=== PATIENT | female | born 1965 | race Caucasian/White ===

== ENCOUNTER 2016-12-02 18:54 | Emergency (ER) | payer BC, OTHER ==
[~2016-12-02 18:54] MED LIST: ATOR-54 PO; DULO60CA44 PO; ETOD300C20 PO; GABA1CAP5 PO
[2016-12-02 19:03] VITALS: TEMP 36.5; O2SAT 98; Ht 142.2 cm
[2016-12-02] MEDS ORDERED: HYDROCODONE/ACETAMOPHEN 5/325MG TAB PO ONE (20:00)
[2016-12-02] MEDS ORDERED: NRN100 PO (20:14)
[2016-12-02] MEDS ORDERED: BUPR100T5 PO (20:14)
[2016-12-02] MEDS ORDERED: SERT100T PO (20:14)
[2016-12-02] MEDS ORDERED: CYAN500T PO (20:21)
[2016-12-02] MEDS ORDERED: OMEG10007 PO (20:21)
[2016-12-02] MEDS ORDERED: CHOL100027 PO (20:21)
[2016-12-02] MEDS ORDERED: HYDR-5688 PO ×2 (20:21→21:41)
[2016-12-02] MEDS ORDERED: MELA1TAB9 PO (20:21)
--- NOTE | 2016-12-02 20:53 | DIAGNOSTIC IMAGING REPORT ---
PELVIS 1 OR 2 VIEW ROUTINE CLINICAL HISTORY: Posterior upper left leg pain status post fall. COMPARISON STUDY: No previous studies for comparison. FINDINGS: A lumbosacral fusion and multilevel discectomy is partially imaged. Sacroiliac joints and symphysis pubis are intact. No acute fracture is identified within the pelvis or the hips. Pelvic calcifications likely reflect phleboliths. IMPRESSION: No acute fracture within the pelvis or hips. Electronically signed by: Alex Gonzalez M.D. 12/02/2016 8:51 PM Dictated Date/Time: 12/02/2016 8:50 PM
--- NOTE | 2016-12-02 20:54 | DIAGNOSTIC IMAGING REPORT ---
LEFT FEMUR 2 VIEWS ROUTINE CLINICAL HISTORY: Hamstring pain s/p fall COMPARISON: None FINDINGS: Fusion hardware within the sacrum is partially imaged on this examination. Alignment of the left hip is anatomic. No acute fracture of the left femur is identified. Alignment of the knee is anatomic. IMPRESSION: No acute fracture of the left femur. Electronically signed by: Alex Gonzalez M.D. 12/02/2016 8:52 PM Dictated Date/Time: 12/02/2016 8:51 PM
--- NOTE | 2016-12-02 21:16 | DIAGNOSTIC IMAGING REPORT ---
LEFT LOWER EXTREMITY VENOUS DOPPLER CLINICAL HISTORY: Posterior left leg pain status post fall. COMPARISON STUDY: Bilateral lower extremity venous Doppler July 18, 2014. TECHNIQUE: Sonography of the deep venous system of the left lower extremity was performed. Compression and augmentation were evaluated. FINDINGS: The left common femoral, superficial femoral and popliteal veins were compressible. Augmentation was normal. Flow was shown within the deep calf vessels. Within the deep tissues of the posterior left thigh, there is a 4.1 x 3.4 x 2 cm complex hypoechoic abnormality. IMPRESSION: 1. No evidence of deep venous thrombus within the left lower extremity. 2. 4.1 x 3.4 x 2 cm hypoechoic abnormality within the deep soft tissues of the posterior left thigh. Given the clinical history, this likely reflects a hematoma which could be seen in the setting of a hamstrings injury. A mass is considered less likely although a follow-up ultrasound in one month is recommended. Electronically signed by: Alex Gonzalez M.D. 12/02/2016 9:15 PM Dictated Date/Time: 12/02/2016 9:12 PM
[2016-12-02 21:17] VITALS: BP 112/70; PULSE 77
--- NOTE | 2016-12-02 21:42 | EMERGENCY ROOM VISIT NOTE ---
ED Visit Note First contact with patient: 19:27 Chief Complaint: LEFT Leg Extreme Pain from Fall History of Present Illness: Patient is a 51-year-old female who presents to the emergency department today for evaluation of ongoing pain to the posterior aspect of the LEFT leg. She reports that on Thursday evening she was at a restaurant when she slipped in the bathroom that was overflowing with water causing her to perform a split. She reports that she had immediate pain in the posterior aspect of the LEFT leg. She was seen at [facility] and had x -rays performed. She is uncertain as to what it x-rayed. She was discharged home and diagnosed with a hip contusion. She reports that she's had no pain to her head, but does complain of continued pain to the posterior aspect of the LEFT leg. She denies any numbness or tingling into the distal extremity. She does report a history of lumbar fusion performed by Dr. Kimble within the past few years. She denies any pain in her low back. The patient denies any loss of control bowel/bladder saddle anesthesia. He reports increasing pain with ambulation and range of motion. She rates her current discomfort as an 8/10. She is tried wikx-ybb-djeeavm medications without relief of symptoms. The patient denies any associated back pain, groin pain, knee pain, ankle pain, or foot pain. Medications: Reviewed and discussed with the patient. Allergies: Oxycodone PMH: As above. SHx: Patient is a 51-year-old female who lives with family. ROS: All pertinent positive and negative review of systems are appropriately documented in the History of Present Illness. Physical Exam: VITAL SIGNS - Vital signs and nursing notes were reviewed. GENERAL - 51-year-old female appearing her stated age and in noticeable discomfort throughout the exam. MUSCULOSKELETAL - moderate tenderness to palpation to the posterior aspect of the LEFT thigh. Decreased range of motion second to patient discomfort. No point tenderness over the bony processes of the extremity. Full flexion at the hip joint with limited extension secondary to discomfort. No ecchymosis or erythema noted to the affected area. No palpable cords. NEUROLOGIC/VASCULAR - Neurovascularly intact distally with +3/5 dorsalis pedis pulses palpated bilaterally. Normal sensation to light and sharp touch appreciated distally. Patellar reflexes equal bilaterally. IMAGING: LEFT FEMUR 2 VIEWS ROUTINE CLINICAL HISTORY: Hamstring pain s/p fall COMPARISON: None FINDINGS: Fusion hardware within the sacrum is partially imaged on this examination. Alignment of the left hip is anatomic. No acute fracture of the left femur is identified. Alignment of the knee is anatomic. IMPRESSION: No acute fracture of the left femur. PELVIS 1 OR 2 VIEW ROUTINE CLINICAL HISTORY: Posterior upper left leg pain status post fall. COMPARISON STUDY: No previous studies for comparison. FINDINGS: A lumbosacral fusion and multilevel discectomy is partially imaged. Sacroiliac joints and symphysis pubis are intact. No acute fracture is identified within the pelvis or the hips. Pelvic calcifications likely reflect phleboliths. IMPRESSION: No acute fracture within the pelvis or hips. LEFT LOWER EXTREMITY VENOUS DOPPLER CLINICAL HISTORY: Posterior left leg pain status post fall. COMPARISON STUDY: Bilateral lower extremity venous Doppler July 18, 2014. TECHNIQUE: Sonography of the deep venous system of the left lower extremity was performed. Compression and augmentation were evaluated. FINDINGS: The left common femoral, superficial femoral and popliteal veins were compressible. Augmentation was normal. Flow was shown within the deep calf vessels. Within the deep tissues of the posterior left thigh, there is a 4.1 x 3.4 x 2 cm complex hypoechoic abnormality. IMPRESSION: 1. No evidence of deep venous thrombus within the left lower extremity. 2. 4.1 x 3.4 x 2 cm hypoechoic abnormality within the deep soft tissues of the posterior left thigh. Given the clinical history, this likely reflects a hematoma which could be seen in the setting of a hamstrings injury. A mass is considered less likely although a follow-up ultrasound in one month is recommended. ED Course: Patient was seen and evaluated by myself. Patient was provided one [place] for breakthrough pain. X-ray of the pelvis and femur were obtained. Ultrasound of the LEFT lower extremity was obtained. Imaging results as above. Imaging results reviewed with the patient who acknowledges understanding. The patient was encouraged to continue to ice the area for comfort. She was provided [place] for breakthrough pain. She is a walker that she will use at home for ambulation. She will follow-up with business applications specialist from today's visit. She will return for any change or worsening symptoms. Patient discharged home in good condition. In the evaluation and treatment of this patient, the following differential diagnoses were considered: Hip Fracture, Hip Dislocation, Greater Trochanteric Bursitis, Musculoskeletal Pain, Lumbar Radiculopathy. Impression: LEFT Hamstring Tear Discharge Instructions: You have been treated in the Emergency Department for a Tear of your LEFT Hamstring. You have received pain medicine in the emergency department which impairs your ability to operate a vehicle. It is illegal for you to drive after receiving these medicines. You have been prescribed [place] to be used for pain control. This is a narcotic medication. You cannot drive or consume alcohol while on this medicine. This medicine should only be used for pain that cannot be controlled with over-the- counter pain medicines. For pain control, you can use the following eqxx-hfr-zelwsbn medicines (if >12 yo): - Regular strength (325mg/tab) Tylenol (acetaminophen) 2 tabs every 4-6 hours as needed. Do not exceed 12 tablets in a 24 hour period. Avoid taking more than 4 grams (4000 mg) of Tylenol per day. This includes any other sources of acetaminophen you may take on a regular basis. - Regular strength (200 mg/tab) Advil (ibuprofen) 1-2 tabs every 4-6 hours as needed. Do not exceed a dose of 3200 mg per day. If this is a recent injury (<24 hrs), ice can be applied to the area of pain for the first 3 days to help decrease pain and inflammation. Ice massages can be performed by freezing water in a paper cup, peeling back the cup to expose the ice and then massaging over the affected area. Use your walker to help you ambulate for the next several days. Follow-up with your primary care provider or orthopedic surgeon by the end of the week for recheck. Return to the Emergency Department if your current symptoms worsen despite treatment course outlined above. Current/Historical Medications Scheduled Bupropion Hcl (Wellbutrin Sr), 100 MG PO QA Cholecalciferol (Vitamin D 1000 Unit), 1,000 INTER.UNIT PO BID Cyanocobalamin (Vitamin B-12), 1 TAB PO DAILY Fish Oil (Tolar-3), 2 CAP PO DAILY Gabapentin (Gabapentin), 100 MG PO BID Melatonin-Pyridoxine (Melatonin), 10 MG PO HS Sertraline Hcl (Zoloft), 150 MG PO QAM Scheduled PRN Etodolac (Etodolac), 1 CAP PO TID PRN for Pain Hydrocodone/Acetaminophen 5MG/325MG ([place] 5MG/325MG), 1 TABLET PO Q8 PRN for Pain Hydrocodone/Acetaminophen 5MG/325MG ([place] 5MG/325MG), 1-2 TABLET PO Q4H PRN for Pain Allergies Coded Allergies: Oxycodone (Verified Allergy, Unknown, HALLUCINATIONS, 04/22/16) Vital Signs Date Time Temp Pulse Resp B/P Pulse Ox O2 Delivery O2 Flow Rate FiO2 12/02/16 21:17 77 18 112/70 Room Air 12/02/16 19:03 36.5 71 20 123/74 98 Room Air Medications Administered Medications (Trade) Dose Ordered Sig/Ynes Route Start Time Stop Time Status Last Admin Dose Admin Acetaminophen/ Hydrocodone Bitart ([place] 5/325 Tab) 1 tab NOW ONCE PO 12/02/16 20:00 12/02/16 20:02 DC 12/02/16 20:00 1 TAB Acetaminophen/ Hydrocodone Bitart ([place] 5/325mg Home Pack) 1 homepack UD ONCE PO 12/02/16 21:45 12/02/16 21:46 DC 12/02/16 21:45 1 HOMEPACK Departure Information Impression Primary Impression: Tear of left hamstring Dispostion Home / Self-Care Condition GOOD Prescriptions Hydrocodone/Acetaminophen 5MG/325MG ([place] 5MG/325MG) Tab 1-2 TABLET PO Q4H Y for Pain, #20 TAB For Initial Treatment Prov: Julian Bennett PA-C 12/02/16 Referrals Barby Willingham (PCP) Patient Instructions My [facility] Additional Instructions You have been treated in the Emergency Department for a Tear of your LEFT Hamstring. You have received pain medicine in the emergency department which impairs your ability to operate a vehicle. It is illegal for you to drive after receiving these medicines. You have been prescribed [place] to be used for pain control. This is a narcotic medication. You cannot drive or consume alcohol while on this medicine. This medicine should only be used for pain that cannot be controlled with over-the- counter pain medicines. For pain control, you can use the following hvit-nuo-isbxuve medicines (if >12 yo): - Regular strength (325mg/tab) Tylenol (acetaminophen) 2 tabs every 4-6 hours as needed. Do not exceed 12 tablets in a 24 hour period. Avoid taking more than 4 grams (4000 mg) of Tylenol per day. This includes any other sources of acetaminophen you may take on a regular basis. - Regular strength (200 mg/tab) Advil (ibuprofen) 1-2 tabs every 4-6 hours as needed. Do not exceed a dose of 3200 mg per day. If this is a recent injury (<24 hrs), ice can be applied to the area of pain for the first 3 days to help decrease pain and inflammation. Ice massages can be performed by freezing water in a paper cup, peeling back the cup to expose the ice and then massaging over the affected area. Use your walker to help you ambulate for the next several days. Follow-up with your primary care provider or orthopedic surgeon by the end of the week for recheck. Return to the Emergency Department if your current symptoms worsen despite treatment course outlined above. Problem Qualifiers Primary Impression: Tear of left hamstring Encounter type: initial encounter Qualified Codes: S76.312A - Strain of muscle, fascia and tendon of the posterior muscle group at thigh level, left thigh, initial encounter
[2016-12-02] MEDS ORDERED: NORCO 5/325MG HOME PACK PO ONE (21:45)
== END 2016-12-02 21:54 | disposition home or self-care (01) ==
LOC: C.EDB 18:55 → C.EDD 21:54
DX: S76.312A Strain of muscle, fascia and tendon of the posterior muscle group at thigh level, left thigh, initial encounter (principal); W01.0XXA Fall on same level from slipping, tripping and stumbling without subsequent striking against object, initial encounter; Y92.511 Restaurant or cafe as the place of occurrence of the external cause; Z98.1 Arthrodesis status

== ENCOUNTER → 2017-08-03 | Outpatient (CLI) | payer OTHER ==
[~2017-08-03] MED LIST changes: -ATOR-54 PO; +BUPR100T5 PO; +CHOL100027 PO; +CYAN500T PO; -DULO60CA44 PO; -GABA1CAP5 PO; +HYDR-5688 PO; +MELA1TAB9 PO; +NRN100 PO; +OMEG10007 PO; +SERT100T PO
[2017-08-03 14:02] LABS: BASO % 0.5 %; BASO ABS # 0.03 K/uL (0-0.2); COMPLETE YES; EOS % 1.4 %; HEMATOCRIT 40.5 % (37-47); IG% 0.2 %; LYMPH % 30.9 %; LYMPH ABS # 1.99 K/uL (1.2-3.4); MEAN CELL VOLUME 84.7 fL (80-100); MEAN CORPUSCULAR HEMOGLOBIN 27.8 pg (25-34); MEAN CORPUSCULAR HGB CONC 32.8 g/dl (32-36); MEAN PLATELET VOLUME 10.5 fL (7.4-10.4); MONO % 7.3 %; NEUT % 59.7 %; PLATELET COUNT 266 K/uL (130-400); RED BLOOD COUNT 4.78 M/uL (4.2-5.4); WHITE BLOOD COUNT 6.45 K/uL (4.8-10.8)
[2017-08-03 16:24] LABS: ALT/SGPT 20 U/L (12-78); BLOOD UREA NITROGEN 13 mg/dl (7-18); BUN/CREATININE RATIO 15.4 (10-20); CALCIUM 8.6 mg/dl (8.5-10.1); CARBON DIOXIDE 26 mmol/L (21-32); CHLORIDE 103 mmol/L (98-107); CHOLESTEROL 342 mg/dl (0-200); CREATININE 0.82 mg/dl (0.60-1.20); GLUCOSE 92 mg/dl (70-99); POTASSIUM 4.5 mmol/L (3.5-5.1); SODIUM 137 mmol/L (136-145); TRIGLYCERIDES 244 mg/dl (0-150); VERY LOW DENSITY LIPOPROT CALC 49 mg/dl
[2017-08-03 16:35] LABS: ALB/GLOB RATIO 0.9 (0.9-2); ALKALINE PHOSPHATASE 114 U/L (45-117); AST/SGOT 20 U/L (15-37); CHOLESTEROL/HDL RATIO 5.3; HDL CHOLESTEROL 65 mg/dl; LDL CHOLESTEROL CALCULATED 228 mg/dl; THYROID STIMULATING HORMONE 0.979 uIu/ml (0.300-4.500)
== END | disposition home or self-care (01) ==
LOC: C.LABMFLN 11:35
PROVIDERS: ATTEND Physician Assistant
DX: F41.9 Anxiety disorder, unspecified (principal); J45.909 Unspecified asthma, uncomplicated; G89.29 Other chronic pain; E78.5 Hyperlipidemia, unspecified

== ENCOUNTER → 2017-09-24 | Outpatient (CLI) | payer OTHER ==
[2017-09-24 13:16] LABS: ALKALINE PHOSPHATASE 116 U/L (45-117); ALT/SGPT 24 U/L (12-78); AST/SGOT 16 U/L (15-37); CHOLESTEROL 177 mg/dl (0-200); CHOLESTEROL/HDL RATIO 2.1; HDL CHOLESTEROL 84 mg/dl; LDL CHOLESTEROL CALCULATED 57 mg/dl; TRIGLYCERIDES 181 mg/dl (0-150); VERY LOW DENSITY LIPOPROT CALC 36 mg/dl
== END | disposition home or self-care (01) ==
LOC: C.LABMFLN 10:35
PROVIDERS: ATTEND Physician Assistant
DX: E78.5 Hyperlipidemia, unspecified (principal)

== ENCOUNTER 2018-12-01 05:45 | Observation (INO) ==
--- NOTE | 2018-11-23 14:57 | Anesthesiology Consultation ---
Date of Service November 23, 2018 Assessment & Plan (1) Encounter for pre-operative examination: Chart Review Chart Review: Acceptable Risk for Surgery and Patient seen in Pre Admission Testing Consults Requested none Teaching & Discussion Pre-Anesthesia Teaching/Discussion Notes: Instructed NPO after midnight before surgery, except medications with 15 cc of water. Medication instructions provided according to the PAT guidelines. History Surgery Operation Date: 12/01/18 07:30 Proposed Procedures p Bilateral Reduction Mammoplasty - Marilou James MD Height/Weight Height: 4 ft 8 in Weight: 94.2 kg Allergies Allergy/AdvReac Type Severity Reaction Status Date / Time oxycodone Allergy Unknown HALLUCINATI Verified 11/19/18 09:22 ONS Medications Home Medications Medication Instructions Recorded Confirmed Last Taken Cbc 15 mg PO 3XWK 11/19/18 11/19/18 Unknown diclofenac sodium 75 mg PO DAILY PRN 11/19/18 11/19/18 Unknown melatonin 10 mg PO HS PRN 11/19/18 11/19/18 Unknown omega 7-bjy-dgm-fish oil [Fish Oil] 1 cap PO QAM 11/19/18 11/19/18 Unknown rosuvastatin 20 mg PO QPM 11/19/18 11/19/18 Unknown sertraline 100 mg PO QAM 11/19/18 11/19/18 Unknown Past Medical History Medical History Anxiety Asthma DOES NOT USE INHALERS Chronic back pain TO BILAT LEGS Depression GERD (gastroesophageal reflux disease) Hyperlipidemia Osteoarthritis Post traumatic stress disorder Past Family History Family History Father Family history of diabetes mellitus Uncle Family history of diabetes mellitus Past Surgical History Surgical History H/O bladder repair surgery X 2-AFTER C SECTIONS History of back surgery X 2 2015- L3-L5 Decompression, L2-S1 Fusion - ETT 7.0, MAC #3, Secured @21cm, Grade 1 view. History of section X 2 History of tonsillectomy Past Anesthesia History No Hx of Anesthesia Complications and No Family Hx of Anesthesia Complications History of PONV No Motion Sickness Screening History of Motion Sickness: No Social History Smoking Status: Former smoker tobacco type: cigarettes Smoking cigarettes per day: Smoked ~1ppd x 30-35 years Do You Dip or Chew Tobacco: No Smoking End Date: QUIT 2013 Hx Alcohol Use: No Hx Substance Use: No Exercise / Class Metabolic Activity II 4-5 Yardwork/Stairs/Walk up hill (Able to climb FOS. Denies CP or SOB. ) Review of Systems Patient denies chest pain, shortness of breath, dyspnea on exertion, cough, wheezing, palpitations. +joint pain (back) +acid reflux (controlled by diet) Physical Exam Vital Signs BP: 98/61 P: 68 R: 12 T: 98.0 SPO2: 94% on RA Constitutional + morbidly obese ENMT Thyromental Distance: > or= 3.5 Finger Breadths (3.5) Mallampati Class: II Neck normal visual inspection, trachea midline and + short neck; neck extension not limited Respiratory normal respiratory effort Auscultation: lungs clear to auscultation bilaterally Cardiovascular Rate/Rhythm: regular rate and regular rhythm Heart Sounds: no murmur Vessels: no carotid bruit Neurologic moves all extremities Psychiatric Orientation: alert and oriented x 3 Testing Electrocardiogram Date: 11/23/18 Findings: + NSR @ (67) and + no change from (06/26/15) Laboratory Results 11/23/18 14:30 11/23/18 14:30 PT 10.0 Seconds (9.0-12.0) 11/23/18 14:30 INR 1.0 (0.9-1.1) 11/23/18 14:30 APTT 26.6 Seconds (21.0-31.0) 11/23/18 14:30
--- NOTE | 2018-11-23 15:08 | PAT Medication Instructions ---
Medication Instructions Date of Service November 23, 2018 Home Medications CBD 15 mg PO 3XWK diclofenac sodium 75 mg PO DAILY PRN melatonin 10 mg PO HS PRN omega 2-jpd-iyp-fish oil [Fish Oil] 1 cap PO QAM rosuvastatin 20 mg PO QPM sertraline 100 mg PO QAM ASK your surgeon for instructions diclofenac sodium 75 mg PO DAILY PRN STOP taking 2 weeks before surgery omega 1-yvm-slg-fish oil [Fish Oil] 1 cap PO QAM DO NOT take the morning of surgery CBD 15 mg PO 3XWK Take morning of surgery With a small sip of water, OTHERWISE NOTHING TO EAT OR DRINK AFTER MIDNIGHT: sertraline 100 mg PO QAM Take evening before surgery melatonin 10 mg PO HS PRN rosuvastatin 20 mg PO QPM Other Notes If you have any questions please call us at [phone] or [phone] or [phone] or [phone]
[2018-11-23 15:14] LABS: Basophils # (auto) 0.04 K/uL (0-0.2); Basophils % (auto) 0.8 %; Eosinophils # (auto) 0.12 K/uL (0-0.5); Eosinophils % (auto) 2.3 %; Hematocrit (blood only) 39.2 % (37-47); Hemoglobin 12.7 g/dL (12.0-16.0); Immature Granulocytes # (auto) 0.01 K/uL (0.00-0.02); Immature Granulocytes % (auto) 0.2 %; Lymphocytes # (auto) 1.88 K/uL (1.2-3.4); Lymphocytes % (auto) 35.9 %; Mean Corpuscular Hgb Conc 32.4 g/dL (32-36); Mean Corpuscular Volume 84.7 fL (80-100); Mean Platelet Volume 10.8 fL (7.4-10.4); Monocytes # (auto) 0.42 K/uL (0.11-0.59); Neutrophils # (auto) 2.76 K/uL (1.4-6.5); Neutrophils % (auto) 52.8 %; Platelet Count 206 K/uL (130-400); RDW Coefficient of Variation 14.8 % (11.5-14.5); RDW Standard Deviation 45.8 fL (36.4-46.3); Red Blood Count 4.63 M/uL (4.2-5.4); White Blood Count 5.23 K/uL (4.8-10.8)
[2018-11-23 15:23] LABS: BUN Creatinine Ratio 13.6 (10-20); Calcium 8.9 mg/dl (8.5-10.1); Creatinine Clr Calc Pharmacy 80.5 ml/min; Est GFR (African American) 104.7; Est GFR (Non-African American) 90.4; Potassium 4.2 mmol/L (3.5-5.1)
[2018-11-23 15:24] LABS: Partial Thromboplastin Time 26.6 Seconds (21.0-31.0)
[2018-12-01] MEDS ORDERED: CEFAZOLIN 2000MG 2,000 MG/15 ML SYR IV SCH (06:00)
[2018-12-01] MEDS ORDERED: LR 15ML/HR IV SCH (06:00)
[2018-12-01] MEDS ORDERED: ROCURONIUM BROMIDE 10 MG/ML 5 ML VIAL ONE (06:49)
[2018-12-01] MEDS ORDERED: PROPOFOL IV EMULSION 10 MG/ML 20 ML VIAL IV ONE (06:49)
[2018-12-01] MEDS ORDERED: MIDAZOLAM HCL 1 MG/ML 2ML VIAL ONE (06:49)
[2018-12-01] MEDS ORDERED: fentaNYL citrate 100 MCG/2 ML VIAL ONE ×4 (06:49→08:18)
[2018-12-01] MEDS ORDERED: LIDOCAINE HCL 2% 2 ML VIAL/AMP(20MG/ML) INFIL ONE (06:49)
[2018-12-01] MEDS ORDERED: LIDOCAINE/EPINEPHRINE 1% 20 ML VIAL ONE (07:04)
[2018-12-01] MEDS ORDERED: BUPIVACAINE 0.25% 30 ML VIAL ONE (07:05)
--- NOTE | 2018-12-01 07:05 | History & Physical Bridge Note ---
Date of Service December 01, 2018 History & Physical Bridge Note I have examined the patient, reviewed the History & Physical and in the interval since the performance of the History & Physical I have noted the following changes of clinical significance: no changes noted. Patient requests to be as small breasted as possible.
[2018-12-01] MEDS ORDERED: ePHEDrine sulfate 50 MG/ML AMP IV PRN (07:09)
[2018-12-01] MEDS ORDERED: ATROPINE SULFATE 0.1 MG/ML 10ML SYR IV PRN (07:09)
[2018-12-01] MEDS ORDERED: fentaNYL citrate 100 MCG/2 ML VIAL IV PRN (07:09)
[2018-12-01] MEDS ORDERED: ONDANSETRON INJ 2 MG/ML 2 ML VIAL IV PRN ×2 (07:09→11:44)
[2018-12-01] MEDS ORDERED: PROMETHAZINE HCL 6.25 MG in SODIUM CHLORIDE 0.9% 50 ML IV PRN (07:09)
[2018-12-01] MEDS ORDERED: HYDROmorphone INJ 2 MG/ML SYR/VIAL ONE ×2 (08:43→09:34)
--- NOTE | 2018-12-01 11:25 | Post Operative Brief Note ---
Immediate Post Op Note v1 Date of Surgery December 01, 2018 Pre & Post Diagnosis Operation Date: 12/01/18 07:30 Pre-Op Diagnosis: Symptomatic Bilateral Macromastia Post-Op Diagnosis: Symptomatic Bilateral Macromastia Procedure Operation Date: 12/01/18 07:30 Actual Procedures p Bilateral Reduction Mammoplasty(Bilateral) - Marilou James MD Surgeon Marilou James MD Acetylene Torch Burner Patricia Alvarez PA-C Estimated Blood Loss 75 Findings Consistent with Post-Op Diagnosis Drains Shan-Nina Drain (x2)
[2018-12-01] MEDS ORDERED: DiphenhydrAMINE HCL 50 MG/ML VIAL IV PRN (11:44)
[2018-12-01] MEDS ORDERED: MoRPHine SULFATE 4 MG/ML 1 ML CARP\\VIAL IV PRN ×3 (11:44)
[2018-12-01] MEDS ORDERED: PROMETHAZINE HCL 12.5 MG in SODIUM CHLORIDE 0.9% 50 ML IV PRN (11:44)
[2018-12-01] MEDS ORDERED: OXAZEPAM 10 MG CAPSULE PO PRN (11:44)
[2018-12-01] MEDS ORDERED: ACETAMINOPHEN 325 MG TAB PO PRN (11:44)
[2018-12-01] MEDS ORDERED: DICLOFENAC SODIUM 75 MG TABCR PO PRN (13:08)
[2018-12-01] MEDS ORDERED: [UNRECOGNIZED DRUG - OTHER] PO SCH (13:08)
[2018-12-01] MEDS: HYDROCODONE/ACETAMOPHEN 5/325MG TAB PO PRN ×2 (14:05→20:30)
--- NOTE | 2018-12-01 14:08 | Anesthesiology Progress Note ---
Date of Service December 01, 2018 Anesthesia Post Procedure Vital Signs Vital Signs: Temp Pulse Pulse Resp BP BP Pulse Ox 12/01/18 13:57 18 122/79 93 12/01/18 13:30 70 18 136/78 92 12/01/18 13:00 37.2 C 80 16 126/80 93 12/01/18 12:35 72 14 154/65 H 94 12/01/18 12:20 36.5 C 82 16 152/72 H 93 12/01/18 12:10 79 16 151/80 H 93 12/01/18 12:00 73 18 134/82 95 12/01/18 11:50 73 18 133/85 95 12/01/18 11:43 36.1 C L 78 18 140/99 94 12/01/18 06:09 36.6 C 70 16 149/77 H 95 Pain Intensity Bilateral Back: Pain Intensity: 4 Notes Mental Status: alert / awake / arousable Patient Amnestic to Procedure: Yes Nausea / Vomiting: adequately controlled Pain: adequately controlled Airway Patency, RR, SpO2: stable & adequate BP & HR: stable & adequate Hydration State: stable & adequate Anesthetic Complications: no major complications apparent
[2018-12-01] MEDS: D5W AND 1/2NSS + 20MEQ KCL 20 MEQ/1,000 ML BAG IV SCH (15:07)
[2018-12-01] MEDS ORDERED: MEDICAL MARIJUANA PO SCH (15:45)
--- NOTE | 2018-12-01 16:05 | Operative Report ---
Post Operative Report Pre & Post Diagnosis Operation Date: 12/01/18 07:30 Pre-Op Diagnosis: Symptomatic Bilateral Macromastia Post-Op Diagnosis: Symptomatic Bilateral Macromastia Procedure Operation Date: 12/01/18 07:30 Actual Procedures Bilateral Reduction Mammoplasty(Bilateral) - Marilou James MD Surgeon Marilou James MD Cashier Host/Hostess Patricia Alvarez PA-C Estimated Blood Loss 75 Findings Consistent with Post-Op Diagnosis Specimens breast tissue (left 1136 g, right 1104 g) Drains JPx2 Anesthesia Type General Complications none Indications back, neck and shoulder pain, intertrigo, macromastia Description of Procedure The risks, benefits, and alternatives of the procedure were explained to the patient who agreed and signed consent. She was identified and marked in the preoperative holding area. She was brought to the operating room where she was positioned supine and placed under general anesthesia without incident. Surgical site was prepped and draped sterilely. A time-out procedure was performed. I began with the left side. Markings were reassessed and a 7 cm pedicle was marked. 1% lidocaine with epinephrine was used to anesthetize the planned incisions. A 38 mm cookie cutter was used to circumscribe the nipple-areolar complex. The previously marked 7 cm pedicle was incised using a 15 blade scalpel and deepithelized. I began with the medial dissection of the pedicle using the Peak Plasmablade. Cautery was used to incise through dermis and breast parenchyma down to the chest wall, taking care not to undermine the pedicle during dissection. A similar procedure was undertaken on the lateral aspect of the pedicle again taking care not to undermine. Lastly, the pedicle was dissected out superiorly using the Peak Plasmablade and this was carried down to the chest wall as well. I then began with excision of the medial breast tissue followed by lateral aspect of the breast tissue and surrounding keyhole incision. A 15 blade scalpel was used to make the inframammary fold incision and the Peak Plasmablade was used to deepen the incision through dermis and breast parenchyma. Dissection was then carried superiorly to the level of the superior incision. Superior incision was then incised using a 15 blade scalpel and again dissected using the Peak Plasmablade. This was undertaken laterally and then around the keyhole portion of the incision. Care was taken to leave some fat on the lateral pectoralis fascia in order to protect the T4 intercostal nerve. Hemostasis was achieved with the Peak Plasmablade. The specimen was passed off in its entirety for weighing. Additional resection was undertaken from the superior flap in order to facilitate closure of the breast and to provide the best shape. The total resection weight of the left breast was 1136 grams. The wound was irrigated with saline and hemostasis was achieved with the Peak Plasmablade. 0.25% Marcaine plain was used to anesthetize the incisions as well as the pectoralis fascia. A 15 Hungarian Fito drain was brought out through a separate stab incision. The nipple-areolar complex was brought into the keyhole using 2-0 Vicryl deep dermal suture. The wound was closed first in a lateral to mid breast direction and then medial to mid breast direction using 2-0 Vicryl deep dermal sutures. Vertical limb was also approximated using 2-0 Vicryl deep dermals and the nipple-areolar complex was inset using 2-0 Vicryl deep dermal sutures. The NAC opening was revised bilaterally, marking the opening with a 38 mm cookie cutter and using a curved iris scissor to make the incisions. Next, the superficial dermal layer was closed using 2-0 PDO running Quill suture along the inframammary fold and 3-0 PDS interrupted dermal sutures along the vertical limb and nipple-areolar complex. Lastly 3-0 Monocryl running subcuticular suture was placed. A similar procedure was undertaken on the right side with maximal excision weight of 1104 grams. Breasts were symmetric and nipple-areolar complexes were viable bilaterally following wound closure. Dermabond Prineo was applied along the inframammary fold and vertical limb and Dermabond was placed around the nipple-areolar complex. Dry dressings and a surgical bra were placed. The patient was awakened and transferred to recovery room in satisfactory condition. Patricia Alvarez PA-C was present and scrubbed throughout the procedure and was instrumental in providing retraction during dissection of the pedicle and assisting in wound closure. I attest to the content of the Intraoperative Record and any orders documented therein. Any exceptions are noted below.
--- NOTE | 2018-12-01 16:07 | Surgery Progress Note ---
Date of Service December 01, 2018 Assessment & Plan (1) Macromastia: Doing well postoperatively. Continue to monitor NACs overnight for any risk of vascular compromise. Subjective Patient is s/p bilateral reduction mammoplasty. States she could "tell a difference in her back and neck as soon as she woke up". Denies pain. Physical Exam 2 Vital Signs (Past 24 Hours): Last Vital Signs Temp 37.2 C 12/01/18 13:00 Pulse 70 12/01/18 13:30 Resp 18 12/01/18 13:57 BP 122/79 12/01/18 13:57 Pulse Ox 93 12/01/18 13:57 Physical Exam: Bilateral breasts symmetric with expected ecchymosis, no hematomas. B/L NACs pink and viable bilaterally. Left EZ 10/right 20 cc serosanguinous
[2018-12-01] MEDS: CEFAZOLIN 2000MG 2,000 MG/15 ML SYR IV SCH ×2 (16:30→23:54)
[2018-12-01] MEDS ORDERED: ENOXAPARIN INJ 40 MG/0.4 ML SYR SQ SCH (21:00)
[2018-12-01] MEDS ORDERED: ROSUVASTATIN CALCIUM 20 MG TAB PO SCH (21:00)
[2018-12-02] MEDS: D5W AND 1/2NSS + 20MEQ KCL 20 MEQ/1,000 ML BAG IV SCH (03:48)
[2018-12-02] MEDS: HYDROCODONE/ACETAMOPHEN 5/325MG TAB PO PRN (05:08)
--- NOTE | 2018-12-02 08:10 | Surgery Progress Note ---
Date of Service December 02, 2018 Assessment & Plan (1) Macromastia: Doing well postoperatively. Drains removed. OK to d/c home today with office follow-up tomorrow. Subjective Patient is s/p bilateral reduction mammoplasty. Denies pain. Reports a good night. Physical Exam 2 Vital Signs (Past 24 Hours): Last Vital Signs Temp 36.5 C 12/02/18 07:43 Pulse 75 12/02/18 07:43 Resp 16 12/02/18 07:43 BP 112/63 12/02/18 07:43 Pulse Ox 95 12/02/18 07:43 Skin: + incision (clean, dry, intact. nipples viable)
[2018-12-02] MEDS ORDERED: MULTIVITAMIN TAB PO SCH (09:00)
[2018-12-02] MEDS ORDERED: SERTRALINE HCL 100 MG TABLET PO SCH (09:00)
--- NOTE | 2018-12-02 10:23 | Anesthesiology Progress Note ---
Date of Service December 02, 2018 Anesthesia Post Procedure Vital Signs Vital Signs: Temp Pulse Pulse Resp BP Pulse Ox 12/02/18 09:35 36.5 C 70 75 16 112/63 95 12/02/18 07:43 36.5 C 75 16 112/63 95 12/02/18 03:34 36.9 C 75 18 115/71 92 12/02/18 00:00 37.2 C 67 16 114/71 93 12/01/18 19:56 36.9 C 75 17 118/76 91 12/01/18 16:07 18 151/89 H 93 12/01/18 13:57 18 122/79 93 12/01/18 13:30 70 18 136/78 92 12/01/18 13:00 37.2 C 80 16 126/80 93 12/01/18 12:35 72 14 154/65 H 94 12/01/18 12:20 36.5 C 82 16 152/72 H 93 12/01/18 12:10 79 16 151/80 H 93 12/01/18 12:00 73 18 134/82 95 12/01/18 11:50 73 18 133/85 95 12/01/18 11:43 36.1 C L 78 18 140/99 94 Pain Intensity Bilateral Back: Pain Intensity: 4 Notes Mental Status: alert / awake / arousable Patient Amnestic to Procedure: Yes Nausea / Vomiting: adequately controlled Pain: adequately controlled Airway Patency, RR, SpO2: stable & adequate BP & HR: stable & adequate Hydration State: stable & adequate Anesthetic Complications: no major complications apparent and Pt Satisfied with anesthetic care
--- NOTE | 2018-12-02 11:56 | Discharge Summary ---
Date of Service December 02, 2018 Admission HPI Per Admitting Provider see admission H&P Admission Exam Per Admitting Provider see admission H&P Principal Diagnosis symptomatic macromastia Discharge Exam Skin + incision (clean, dry, intact. nipples viable) Discharge Data Allergies Allergy/AdvReac Type Severity Reaction Status Date / Time oxycodone Allergy Unknown HALLUCINATI Verified 12/01/18 05:57 ONS Procedures Performed Operation Date: 12/01/18 07:30 Actual Procedures p Bilateral Reduction Mammoplasty(Bilateral) - Marilou James MD Hospital Course (1) Macromastia: Patient presented to [facility] with history of symptomatic macromastia. She was taken to the OR and underwent bilateral breast reduction. There were no intraoperative complications. On POD #1, her drains were removed. On exam, her incisions were CDI and nipples viable. She was discharged home with instructions to follow-up as an outpatient in the office. Total Time Total Time Spent Total Time Spent (In Minutes): 10 Total Time Includes: Examination of the Patient, Discharge Planning and Medication Reconciliation Discharge Plan Discharge Items Patient Disposition: Home - Self-Care Reason For Visit: Symptomatic Macromastia Discharge Diagnosis: s/p bilateral breast reduction Discharge Goals: Decrease discomfort and Improve function Activity: As commented below Non-emergency contact: Surgeon Call non-emergency contact if: you have any medication questions, your pain is not controlled, you have a fever and your wound has increased redness Follow-up/Referrals: Barby Willingham PA-C [Primary Care Provider] - Diet: Regular Addtl Provider Instructions: ACTIVITY RECOMMENDATIONS: __Normal activities x_No bending, lifting or straining __No driving __Driving allowed when you are off pain medications x__Walking permitted __You should have help at home for ___ days DRESSINGS: __No dressings required _x_Keep dressings dry/in place until first office visit __Remove dressings ___ and leave dressings off __Apply ice ___ days __Remove dressings and reapply garment __Apply antibiotic ointment (Bacitracin, Neosporin, etc) to wounds 3-4 times/ day for 10 days BATHING: _x_Keep dressings dry x__Sponge bathing permitted __Showering permitted _x_No swimming, hot tubs or soaking in a tub MEDICATIONS: Resume previous medications unless instructed otherwise by your surgeon. _x_Do not use aspirin, Motrin, Advil or Ibuprofen as these may promote bleeding. Please use Tylenol. __xPrescription(s) provided: pain medication was provided at your last office visit OTHER INSTRUCTIONS: __Record drain output 2-3 times per day SPECIAL CARE INSTRUCTIONS: * It is normal to have a mild fever after surgery. If your temperature is higher than 101.5 degrees F, please call the office at [phone]. * Constipation is a typical side effect of pain medication. An over-the- counter stool softener will help relieve this. * Leaking around surgical drains may occur and should not cause concern. Sometimes these drains become clogged. If this happens, remove the bulb and milk the clot out of the tube, then replace the bulb. * Drainage from wounds after liposuction is normal and should be expected. Garments will become soiled. You should protect furniture and bedding. This drainage should mostly subside within 2-3 days. Leave garments in place unless instructed to remove them. * If you have unusual drainage from a wound or are concerned you have an infection or have any questions or concerns, please call the office at [phone]. FOLLOW UP VISIT: If not already scheduled, please call the office, , when you return home after surgery to schedule an appointment to be seen in __1_ days. Prescriptions: Continue sertraline 100 mg Tablet 100 mg PO QAM RF: 0 diclofenac sodium 75 mg Tablet,Delayed Release (Dr/Ec) 75 mg PO DAILY PRN (Reason: Pain) RF: 0 melatonin 10 mg Capsule 10 mg PO HS PRN (Reason: Sleep) RF: 0 rosuvastatin 20 mg Tablet 20 mg PO QPM RF: 0 Cbc 15 mg PO [id number] RF: 0 Discontinued omega 3-[id number]-mtu-fish oil [Fish Oil] 1,000 mg (120 mg-180 mg) Capsule 1 cap PO QAM RF: 0 Stand-Alone Forms: [facility] Discharge Orders: Discharge Order (Routine); Ordered 12/02/18 Ordered By: Patricia Alvarez Admission Data Admit Date/Time: 12/01/18 11:44 Attending Provider: Marilou James Admit Provider: Marilou James Primary Care Provider: Barby Willingham Service: Surgical Services Other Interventions: Discharge Summary Assessment (RN) Last Done: 12/02/18 09:35 Pending Studies at Discharge: Yes Studies:: pathology DC Date/Time DO NOT enter until pt leaves facility: 12/02/18 11:07
== END 2018-12-02 11:07 | disposition home or self-care (01) ==
LOC: 3W 05:45 → ASU 05:45